=== PATIENT | female | born 1985 | race Caucasian/White ===

== ENCOUNTER 2020-05-18 15:45 | Emergency (ER) | payer OTHER ==
[~2020-05-18] VITALS: Ht 162.6 cm; Wt 45.4 kg
[2020-05-18 15:57] LABS: URINE BILIRUBIN NEGATIVE (Negative); URINE BLOOD 1+ (Negative); URINE CLARITY CLEAR; URINE COLOR YELLOW; URINE GLUCOSE-RANDOM* NEGATIVE (Negative); URINE KETONES NEGATIVE (Negative); URINE LEUKOCYTES-REFLEX 2+ (Negative); URINE NITRITE-REFLEX NEGATIVE (Negative); URINE PROTEIN (DIPSTICK) NEGATIVE (Negative); URINE SPECIFIC GRAVITY <= 1.005 (1.005-1.035); URINE UROBILINOGEN 0.2 E.U./dl (0.2-1.0)
[2020-05-18 16:04] VITALS: BP 105/72
[2020-05-18 16:05] LABS: CASTS None Seen /LPF (None Seen); SQUAMOUS 4-10 Moderate /LPF (0-3)
[2020-05-18 16:06] LABS: URINE WBC-REFLEX 6-15 Few /HPF (0-5)
[2020-05-18 16:07] LABS: BACTERIA-REFLEX 1-9 Few /HPF (None Seen); URINE RBC 0-2 Rare /HPF (0-2)
[2020-05-18 16:08] LABS: CRYSTALS None Seen /LPF (None Seen)
[2020-05-18] MEDS ORDERED: KEFLEX500 M1 PO (16:30)
[2020-05-18] MEDS ORDERED: PHENAZOPYRIDIN200 M2 PO (16:30)
== END 2020-05-18 16:50 | disposition home or self-care (01) ==
LOC: ER 15:45
PROVIDERS: Physician Assistant
DX: N39.0 Urinary tract infection, site not specified (principal)

== ENCOUNTER 2020-06-22 15:20 | Emergency (ER) | payer OTHER ==
[~2020-06-22] VITALS: Ht 162.6 cm; Wt 45.4 kg
[~2020-06-22 15:20] MED LIST: KEFLEX500 M1 PO; PHENAZOPYRIDIN200 M2 PO
[2020-06-22] MEDS ORDERED: BACTRIM DS TAB1 EACH PO (16:05)
[2020-06-22] MEDS ORDERED: KEFLEX500 M1 PO (16:05)
[2020-06-22 16:09] VITALS: BP 111/63
== END 2020-06-22 16:09 | disposition home or self-care (01) ==
LOC: ER 15:20
DX: L03.317 Cellulitis of buttock (principal); F17.210 Nicotine dependence, cigarettes, uncomplicated

== ENCOUNTER 2020-09-12 15:15 | Emergency (ER) | payer OTHER ==
[~2020-09-12] VITALS: Ht 162.6 cm; Wt 45.4 kg
[~2020-09-12 15:15] MED LIST changes: +BACTRIM DS TAB1 EACH PO
[2020-09-12 16:12] LABS: URINE BILIRUBIN NEGATIVE (Negative); URINE BLOOD TRACE (Negative); URINE CLARITY CLEAR; URINE COLOR YELLOW; URINE GLUCOSE-RANDOM* NEGATIVE (Negative); URINE KETONES NEGATIVE (Negative); URINE LEUKOCYTES-REFLEX NEGATIVE (Negative); URINE NITRITE-REFLEX NEGATIVE (Negative); URINE PROTEIN (DIPSTICK) NEGATIVE (Negative); URINE UROBILINOGEN 0.2 E.U./dl (0.2-1.0)
[2020-09-12 16:31] LABS: ABSOLUTE NEUTROPHILS 3.1 thou/uL (1.4-8.2); BASOPHILS 0.5 % (0.0-2.0); EOSINOPHILS 4.8 % (0.0-3.0); HEMATOCRIT 39.9 % (37.0-47.0); HEMOGLOBIN 13.6 gm/dL (12.0-15.0); LYMPHOCYTES 33.3 % (24.0-44.0); MCH 32.1 pg (26.0-34.0); MCV 94.3 fL (80.0-100.0); MONOCYTES 6.7 % (1.0-8.0); PLATELET COUNT 149 thou/uL (150-400); POLYS 54.7 % (36.0-66.0); RBC 4.23 mil/uL (4.20-5.00); RDW 12.2 % (10.5-14.5); WBC 5.7 thou/uL (4.0-11.0)
[2020-09-12 16:47] LABS: ALBUMIN 3.9 g/dL (3.4-5.0); CREATININE 1.1 mg/dL (0.6-1.0); POTASSIUM 3.8 mmol/L (3.5-5.1); TOTAL BILIRUBIN 0.6 mg/dL (0.2-1.0); TOTAL PROTEIN 7.2 g/dL (6.4-8.2)
[2020-09-12 16:49] LABS: CALCIUM 9.3 mg/dL (8.5-10.1)
[2020-09-12 17:55] VITALS: BP 96/62
== END 2020-09-12 17:52 | disposition home or self-care (01) ==
LOC: ER 15:15
PROVIDERS: Emergency Medicine
DX: R10.32 Left lower quadrant pain (principal); F17.210 Nicotine dependence, cigarettes, uncomplicated